=== PATIENT | female | born 2000 | race Caucasian/White ===

== ENCOUNTER 2018-08-15 | Emergency (ER) | payer OTHER ==
[~2018-08-15] VITALS: Ht 165.1 cm; Wt 68.0 kg
--- NOTE | 2018-08-15 00:02 | NUR ---
PT TAKEN TO BED 4
[2018-08-15 00:16] VITALS: BP 110/58
--- NOTE | 2018-08-15 00:17 | NUR ---
PT SANTOS FRANDYKATELYNKari. PRESENTED ER WITH C/O ALCOHOL INTOXICATION. PT O2 SAT IS 96 ON RA. PT HAS N/V X 4 IN ER. GCS OF 10 AT THIS TIME. DIFFICULT TO AROUSE. ER MD MADE AWARE OF STATUS. BED RAILS UP X 2. VSS.
[2018-08-15] MEDS ORDERED: NACL 0.9% 1,000 ML IV ONE (00:25)
[2018-08-15] MEDS ORDERED: ONDANSETRON 4 MG/2 ML VIAL IVP ONE (00:25)
--- NOTE | 2018-08-15 00:29 | NUR ---
Dr. Hart evaluating patient at bedside.
--- NOTE | 2018-08-15 01:05 | NUR ---
PT HAS A FRIEND AT BEDSIDE. PT OPENS HER EYES TO VOICE. VSS.
--- NOTE | 2018-08-15 01:52 | NUR ---
PT SLEEPING IN BED. PT IS SITTING UP IN BED. FRIEND AT BEDSIDE. VSS.
--- NOTE | 2018-08-15 02:24 | NUR ---
PT MOTHER AT BEDSIDE
--- NOTE | 2018-08-15 02:30 | NUR ---
pt able to sit up on own, talking and A/O X 4. Mom and freiand at bed side, vss.
--- NOTE | 2018-08-15 02:47 | NUR ---
Dr. Hart evaluating patient at bedside.
[2018-08-15 03:00] VITALS: BP 113/62
--- NOTE | 2018-08-15 03:00 | NUR ---
Patient discharged with v/s stable. Written and verbal after care instructions given and explained. Patient alert, oriented and verbalized understanding of instructions. Ambulatory with steady gait. All questions addressed prior to discharge. ID band removed. Patient advised to follow up with PMD. Rx of ZOFRAN was given. Patient educated on indication of medication including possible reaction and side effects. Opportunity to ask questions provided and answered.
== END 2018-08-15 03:00 | disposition home or self-care (01) ==
LOC: MED
DX: F10.129 Alcohol abuse with intoxication, unspecified (principal); R11.2 Nausea with vomiting, unspecified
CPT/HCPCS: 96361; 96374; 99283; J2405; J7030